=== PATIENT | female | born 1990 | race Caucasian/White ===

== ENCOUNTER 2023-03-04 09:35 | Emergency (ER) | payer OTHER, SELFPAY ==
[2023-03-04 09:42] VITALS: BP 138/85; PULSE 81; RESP 16; TEMP 36.4; O2SAT 100
--- NOTE | 2023-03-04 09:48 | ED.BACK ---
HPI - Back Pain/Injury General Chief Complaint: Back Pain/Injury Stated Complaint: back pain Time Seen by Provider: 03/04/23 09:48 Source: patient Mode of arrival: ambulatory Limitations: no limitations History of Present Illness HPI Narrative: 32 yo F presents with c/o mid back pain starting yesterday. States she was at work standing and talking with someone and got sharp pain to back that made back tight and took her breath away. Eventually when away. Started again last night and has been constantly. Taking deep breath increases pain. Woke up this AM and felt like she couldn't get out of bed due to pain. When bending over stretches painful area and makes it feel better. No CP or SOB. Has not taken any OTC meds to treat pain. Denies injury. Started new job recently at [employer]. Standing, stocking and lifting. Ambulatory with steady gait. All systems reviewed and negative except as noted above. Related Data Allergies Allergy/AdvReac Type Severity Reaction Status Date / Time No Known Allergies Allergy Verified 03/04/23 09:46 Review of Systems Review of Systems: CONSTITUTIONAL: Denies fever, chills, or sweats. EYES: Denies visual changes, redness, or discharge. ENT: Denies rhinorrhea, congestion, sore throat, or otalgia. CARDIOVASCULAR: Denies chest pain, palpitations, or edema. RESPIRATORY: Denies cough or dyspnea. GASTROINTESTINAL: Denies abdominal pain, nausea, vomiting, or diarrhea. GENITOURINARY: Denies dysuria or hematuria. SKIN: Denies rash or itching. MUSCULOSKELETAL: Reports mid back pain. Denies joint pain, or myalgia. NEUROLOGIC: Denies headache, numbness, or weakness. PSYCHIATRIC: Denies anxiety or depression. All other systems reviewed are negative, except as documented in HPI. PMFSH Comments At time of signature, agree with nursing past medical, surgical, social and family history. There is no relevant family history pertinent to the presenting complaint. Exam Narrative: GENERAL: This is a well-nourished, well-developed patient, in no apparent distress. HEAD: normocephalic, atraumatic. EYES: PERRL. Sclera clear/white. Vision is grossly intact. EARS: External ears normal NOSE: External nose normal NECK: Neck supple, non-tender without lymphadenopathy, masses or thyromegaly. CARDIOVASCULAR: Regular rate and rhythm without murmurs, gallops, or rubs. RESPIRATORY: Clear to auscultation. Breath sounds equal bilaterally. No wheezes, rales, or rhonchi. SKIN: warm, Dry, intact with no suspicious lesions or rash, good texture and turgor. NEURO: awake, alert, and oriented to person, place and time. There were no obvious focal neurologic abnormalities. EXTREMITIES: No joint tenderness, effusion, or edema noted. BACK: no midline tenderness. no deformity. generalized muscle tenderness. flexion improves pain. Course Course Level of Care: Express Care Visit Vital Signs Vital signs: Vital Signs Temperature 36.4 C L 03/04/23 09:42 Pulse Rate 81 03/04/23 09:42 Respiratory Rate 16 03/04/23 09:42 Blood Pressure 138/85 03/04/23 09:42 Pulse Oximetry 100 03/04/23 09:42 Oxygen Delivery Room Air 03/04/23 09:42 Temperature 36.4 C L 03/04/23 09:42 Pulse Rate 81 03/04/23 09:42 Respiratory Rate 16 03/04/23 09:42 Blood Pressure 138/85 03/04/23 09:42 Pulse Oximetry 100 03/04/23 09:42 Oxygen Delivery Room Air 03/04/23 09:42 reviewed MDM - Back Pain/Injury MDM Narrative Medical decision making narrative: will treat with NSAIDS, prednisone, muscle relaxant. alternate ice and heat and stretch. instructed to go to ER for any worsening of symptoms. no neuro deficits. Patient is aware of diagnosis, understands and agrees to treatment plan. Anticipatory guidance given. Patient agrees to follow-up as directed and is aware of reasons to seek care at the emergency department. Portions of this record may have been created with voice recognition software Differential Di
== END 2023-03-04 10:02 | disposition home or self-care (01) ==
PROVIDERS: Emergency Provider Nurse Practitioner Family; PCP Family Medicine
DX: S29.012A Strain of muscle and tendon of back wall of thorax, initial encounter (principal); X58.XXXA Exposure to other specified factors, initial encounter; Y99.0 Civilian activity done for income or pay
CPT/HCPCS: 99213; G0463

== ENCOUNTER 2023-11-11 13:51 | Emergency (ER) | payer OTHER, SELFPAY ==
[2023-11-11 13:56] VITALS: BP 132/89; PULSE 94; RESP 20; TEMP 36.9; O2SAT 99
--- NOTE | 2023-11-11 14:03 | ED.URI ---
HPI - URI/Sore Throat General Stated Complaint: Shortness of Breath/Lung Pain Time Seen by Provider: 11/11/23 14:03 Source: patient and RN notes reviewed Mode of arrival: ambulatory Limitations: no limitations History of Present Illness HPI Narrative: 33-year-old female presents with concern for left long pain and shortness of breath. She reports symptoms started 4 days ago. She denies cold symptoms. Reports occasional cough. She denies fever, body aches, chills, sweats. She reports history of blood clots in her lung or 9 years ago. MD elicited complaint: other (Shortness of breath) Related Data Allergies Allergy/AdvReac Type Severity Reaction Status Date / Time No Known Allergies Allergy Verified 03/04/23 09:46 Review of Systems Review of Systems: CONSTITUTIONAL: Denies malaise, chills, sweats, or fever. EYES: Denies visual changes, redness, or discharge. ENT: Denies rhinorrhea, congestion, sinus pain, otalgia and sore throat. CARDIOVASCULAR: Denies palpitations, or edema. RESPIRATORY: Reports left lung pain. Reports rotation cough. Reports occasional dyspnea. GASTROINTESTINAL: Denies abdominal pain, nausea, vomiting, diarrhea SKIN: Denies rash or itching. MUSCULOSKELETAL: Denies myalgia. NEUROLOGIC: Denies headache. All systems reviewed & are unremarkable except as noted in HPI and below PMFSH Comments At time of signature, agree with nursing past medical, surgical, social and family history. There is no relevant family history pertinent to the presenting complaint Exam Narrative: GENERAL: Well-appearing, well-nourished, and in no acute distress. HEAD: Normocephalic EYES: PERRLA, conjunctivae clear ENT: Nares clear. Mucous membranes moist. TM pearly keller with sharp light reflex bilaterally; no tragal tenderness. Oropharynx not erythematous without lesions. Tonsils not enlarged and without exudate, no drooling, no hoarseness, no trismus, uvula midline. NECK: Supple. No lymphadenopathy CHEST: Clear to auscultation, breath sounds equal. No wheezing, rhonchi, rales, or stridor. No respiratory distress, speaks in full sentences. HEART: Regular rate and rhythm. No murmur heard. SKIN: Warm, dry, no rash. NEURO: Alert and oriented x3. PSYCH: Normal mood and affect Course Course Emergency Course: Patient is aware of, understands and agrees to be transferred to the emergency room. Patient agrees to proceed directly to the emergency department. Portions of this record may have been created with voice recognition software Level of Care: Express Care Visit Vital Signs Vital signs: Vital Signs Temperature 98.4 F 11/11/23 13:56 Pulse Rate 94 11/11/23 13:56 Respiratory Rate 20 11/11/23 13:56 Blood Pressure 132/89 11/11/23 13:56 Pulse Oximetry 99 11/11/23 13:56 Oxygen Delivery Room Air 11/11/23 13:56 Temperature 98.4 F 11/11/23 13:56 Pulse Rate 94 11/11/23 13:56 Respiratory Rate 20 11/11/23 13:56 Blood Pressure 132/89 11/11/23 13:56 Pulse Oximetry 99 11/11/23 13:56 Oxygen Delivery Room Air 11/11/23 13:56 Reviewed. Transfer Transfered to: [facility]) Transportation: Other (Private vehicle) Transfer rationale: SOB, lung pain, hx of blood clots Accepting physician: Deuce MDM - URI/Sore Throat MDM Narrative Medical decision making narrative: Differential diagnosis considered: Pulmonary embolism, Macias virus, strep pharyngitis, allergic rhinitis, upper respiratory tract infection, sinusitis, rhinosinusitis, nasopharyngitis. viral pharyngitis, otitis media, otitis externa, pneumonia, bronchitis, viral cough syndrome, viral syndrome, and influenza. Exam findings show no acute concerns or changes; patient is non-toxic appearing and is in no distress. Patient is appropriate for outpatient treatment and follow-up. Lab Data Attestation: I reviewed the patient's lab results. Critical Care Time Critical Care Time Critical Care Time: No Discharge P
== END 2023-11-11 14:19 | disposition short-term general hospital (02) ==
PROVIDERS: Emergency Provider Nurse Practitioner
DX: R06.02 Shortness of breath (principal); Z86.711 Personal history of pulmonary embolism
CPT/HCPCS: 99212; G0463

== ENCOUNTER 2024-06-10 12:50 | Emergency (ER) | payer OTHER, SELFPAY ==
--- OUTSIDE RECORDS SUMMARY | 2024-06-10 12:53 | XMS_ITS | Clinical Summary ---
Author Organization [facility] Address [address] [place] [address] Care Team Providers Care Commutator Repairer Name Role Phone Unavailable Primary Care Provider Unavailabl e Source Comments [facility],non-owned Affiliates and Associated Physician Practices is amultiple site organization consisting of ambulatory clinics and hospital sitesin [place], [place]. This disclosure is being madepursuant to the Care Everywhere program and may not contain all information available regarding this patient. 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 Gender Identity Not on file Sexual Orientation Not on file Plan of Treatment Health Maintenance Due Date Last Done Comments PAP SMEAR 1991 HIV SCREENING 09/06/2006 HEPATITIS C SCREENING 09/02/2009 DTAP/TDAP/TD VACCINES (1 - Tdap) 09/06/2010 HEPATITIS B VACCINE (1 of 3 - 19+ 3-dose series) 09/06/2010 COVID-19 VACCINE ( - 2023-2 5 season) 2023 DEPRESSION SCREENING 02/22/2024 INFLUENZA VACCINE (Season Ended) 2024 ZOSTER VACCINE (1 of 2) 09/06/2041 HIB VACCINE Aged Out No longer eligi ble based on patient's age to complete this topic HPV VACCINE Aged Out No longer eligi ble based on patient's age to complete this topic MENINGOCOCCAL (Group B) VACC INE SHARED DECISION-MAKING Aged Out No longer eligibl e based on patient's age to complete this topic MENINGOCOCCAL GROUPS A/C/Y/W VACCINE Aged Out No longer eligible b ased on patient's age to complete this topic PNEUMOCOCCAL VACCINE Aged Out No long er eligible based on patient's age to complete this topic Insurance [facility]
--- OUTSIDE RECORDS SUMMARY | 2024-06-10 12:53 | XMS_ITS | Clinical Summary ---
Author Organization [facility] Address [address] [place] [address] Phone Care Team Providers Care Perishable Freight Inspector Name Role Phone Samuel Montoya MD Unavailable [phone] Lyle Barreto MD Unavailable [phone] Tabby Coelho APRN, TRUCK DRIVING INSTRUCTOR Unavailable [phone] Mahi Little MD Primary Care Provider [phone] Allergies Active Allergy Reactions Criticality Noted Date Comments Hydrocodone Other (see Comments) High 03/30/2018 States blacks out Medications Paragard Intrauterine Copper IUD by Intrauterine route. Active methylPREDNISolo ne (MEDROL DOSPACK) 4 MG Tablet Therapy Pack See product package insert for dosing schedule 21 Tablet 4 Active Active Problems Problem Noted Date Diagnosed Date Mass of left breast 01/26/2022 Right axillary swelling 08/14/2020 History of therapeutic radiation 11/27/2019 Overview (11/27/2019): Hypofractionated left breast radiotherapy completed 10/02/2018. Breast pain, left 12/26/2018 History of cancer chemotherapy 08/08/2018 Overview (08/08/2018): 4 cycles of carboplatin and Taxotere 05/16/2018 thru 07/18/2018. Obesity, Class I, BMI 30-34.9 05/01/2018 Overview (05/01/2018): BMI 34.38 on 04/26/2018. Continuous tobacco abuse 04/26/2018 Overview (04/26/2018): 6 pack year history. Was interested in trying to quit but has not yet tried. History of left breast cancer 03/06/2018 Cancer Staging:Clinical stage from 04/26/2018:Stage IIA(cT2, cN0(f), cM0, G2, ER+, IA-, HER2-) - Signed by Samuel Montoya MD on 11/15/2018 Pathologic stage from 04/26/2018:Stage IIA(pT2, pN0(sn), cM0, G3, ER-, IA-, HER2-, Oncotype DX score: 58) - Signed by Samuel Montoya MD on 11/15/2018 Overview (11/15/2018): Pathological stage IIA (pT2 pN0(sn) cM0, G3, triple negative, Ki-67 70%, & Oncotype DX score 58) left breast IDC. She had breast conserving surgery 03/30/2018. On her breast biopsy her tumor stained at 40% for estrogen receptor but by Oncotype DX was triple negative. She received 4 cycles of adjuvant postoperative carboplatin and Taxotere from 05/16/2018 thru 07/18/2018. She completed hypofractionated left breast radiotherapy 10/02/2018. History of deep vein thrombosis (DVT) of lower e xtremity 10/23/2015 Overview (04/26/2018): Right lower extremity. While on Coumadin for anticoagulation for a PE in February 2015. Uses control 03/22/2015 Overview (05/01/2018): Depot progesterone as control following development of PE February 2015 while on Nexplanon dermal implant as control. . History of pulmonary embolism 02/21/2015 Overview (04/26/2018): While on Nexplanon dermal implant as control. Managed with Coumadin. Resolved Problems Problem Noted Date Diagnosed Date Resolved Date Acute radiation dermatitis 09/25/2018 0 11/15/2018 Overview (09/25/2018): Mild, in the left lower outer quadrant of the left breast. Anemia due to chemotherapy 09/18/2018 0 11/15/2018 Constipation 06/30/2018 08/08/2018 Nausea 06/28/2018 08/08/2018 Anxiety 06/06/2018 11/15/2018 Continuous tobacco abuse 06/06/2018 History of lymph node biopsy 04/26/2018 11/15/2018 Overview (04/26/2018): Left axillary sentinel lymph node biopsy 03/30/2018 in conjunction with a left partial mastectomy. History of partial mastectomy of left breast 9 11/15/2018 Overview (04/26/2018): 03/30/2018 in conjunction with a left axillary sentinel lymph node biopsy. Right leg DVT 03/29/2016 04/26/2018 Pulmonary emboli 03/22/2015 04/26/2018 Chest pain in adult 03/22/2015 03/29/19 17 Tobacco use 03/22/2015 11/15/2018 Immunizations Immunization Administration Dates Next Due Covid-19, Mrna, Lnp-s, Pf, 3 0 Mcg/0.3 Ml Dose ([employer]) 07/29/2020,07/09/2020 DTP Vaccine 12/02/1995 DTP-Hib 06/04/1993, 3,04/25/1992,01/09 Hepatitis A Vaccine, Pediatric/adolescent, 2 Dose Schedule 09/08/2006 Hepatitis B Vaccine, Pediatric/adolescent 05/09/1996,12/02/1995,09/15/1994 Human Papillomavirus Vaccine (HPV), quadrivalent 04/20/2007,09/08/2006 MMR Vaccine 12/02/1995,06/04/1993 OPV 12/02/1995, 3,04/25/1992,01/09 TDAP Vaccine 09/08/2006 Family History Medical History Relation Name Comments No Known Problems Brother 1 No Known Problems Brother 2 No Known Problems Daughter No Known Problems Father Cancer Maternal Aunt Spine Heart Attack Mother Hypertension Mother Relation Name Status Comments Brother 1 Alive Brother 2 Alive Daughter Alive Father Alive Maternal Aunt Mother Alive Social History Tobacco Use Types Packs/Day Years Used Date Smoking Tobacco: Every Day Cigarettes 0.5 17.8 Started: 08/05/2006 Smokeless Tobacco: Never Tobacco Cessation:Ready to Q uit: Not Asked; Counseling Given: Not Answered Comments:Hoping to quit. 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 Not on file Not on file Not on file Last Filed Vital Signs Vital Sign Reading Time Taken Comments Blood Pressure 123/81 11/11/2023 10:00 PM CDT Pulse 86 11/11/2023 10:00 PM CDT Temperature 36.4 C (97.6 F) 11/11/2023 2:57 PM CDT Respiratory Rate 22 11/11/2023 10:00 PM CDT Oxygen Saturation 98% 11/11/2023 10:00 PM CDT Inhaled Oxygen Concentration - - Weight 95.3 kg (210 lb 1.6 oz) 11/11/2023 2:57 P M CDT Height 168.9 cm (5' 6.5 ) 11/11/2023 2:57 PM CDT Body Mass Index 33.4 11/11/2023 2:57 PM CDT Plan of Treatment Health Maintenance Due Date Last Done Comments Hepatitis C Virus (HCV) Screening 1990 Pneumococcal Immunization Combined (1 of 2 - PCV) 09/06/2010 Pap Smear 09/06/2012 DTaP/Tdap/Td Immunization (7 - Td or Tdap) 09/08/2016 09/08/2006, 12/02/1995, 06/04/1993, Additional history exists Cervical Cancer Screening (CCS) 09/06/2021 HPV/Cotest 09/06/2021 Influenza Immunization (#1) 2023 SARS-COV-2 Immunization ( season) 2023 03/21/2021, 07/29/2020, 07/09/2020 Respiratory Syncytial Virus (RSV) Immunization (Adult) (1 - 1-dose 75+ series) 09/06/2066 Hepatitis B Immunization Completed 997, 12/02/1995, 09/15/1994 Meningococcal Immunization (ACWY) Aged Out No longer eligible based on patient's age to complete this topic Rotavirus Immunization Aged Out No lo nger eligible based on patient's age to complete this topic Medical Devices Explanted Type Area Host/Hostess Ground Device Identifier Shelf Expiration Date Model / Serial / Lot Port Powerport Clearvue Isp Implantable W/8fr Folyurethane Catheter - [id number] Implanted:Qty: 1 on 05/11/2018 by Lino Wills MD at [facility] Explanted:Qty: 1 on 09/04/2018 by Marek Keith MD at [facility] IMPLANT Right: Chest [employer] 07/22/2019 [id number] / [id number] / [id number] Insurance [place]ID [place] Advance Directives * Full Code (Latest Code Status on File) Date Activated Date Inactivated Comments 03/21/2015 11:47 PM 03/23/2015 12:50 PM Full Code: FULL ARREST: Attempt Resuscitation/CPR and use intubation and mechanical ventilation as indicated. PRE-ARREST: Use all measures to stabilize patient. Care Teams Perishable Freight Inspector Relationship Specialty Start Date End Date Mahi Little MD [address] [place] [address] DR MURILLO [address] [place] [id number] PCP - General Obstetrics & Gynecology 9/20/24 Samuel Montoya MD Consulting Physician Radiation Oncology 04/26/18 Lyle Barreto MD [address] [place], [place] [id number] Consulting Physician Medical Oncology 11/27/19 Tabby Coelho APRN, TRUCK DRIVING INSTRUCTOR [address] [place] [address] Nurse Practitioner Advanced Practice Nurse 11/27/19
--- OUTSIDE RECORDS SUMMARY | 2024-06-10 12:53 | XMS_ITS | Referral Summary ---
Author Organization [facility] Virtual Care Address [address] [place] [phone] Phone Care Team Providers Care Fuel Cell Repairer Name Role Phone No, Physician Primary Care Provider [phone] No, Physician Unavailable Mahi Little MD Unavailable [phone] Allergies Active Allergy Reactions Criticality Noted Date Comments Hydrocodone Other (See comments) High 03/30/2018 States blacks out Medications ibuprofen (ADVIL,MOTRIN) 600 mg tablet Take 1 tablet (600 mg total) by mouth every 6 (six) hours as needed for pain 20 tablet 07/20/2023 Active Active Problems Problem Noted Date Diagnosed Date Stress incontinence of urine 08/04/2023 Assessment & Plan (08/04/2023 4:05 PM CDT): To ua micro and C&S History of left breast cancer 05/16/2023 Menorrhagia with regular cycle 05/16/2023 Assessment & Plan (08/04/2023 3:59 PM CDT): S/p novasure Supposed to start period tomorrow No more odor Assessment & Plan (07/13/2023 10:00 AM CDT): Procedure reviewed along with risk, benefits and alternatives as they pertain to her specifically. Questions answered Post op pain management discussed. She voices understanding and desired to proceed. usg reviewed We discussed the 50% amenorrhea rate with novasure, the 46-47% significantly decreased menses and 2-3% failure. We discussed that it may not be permanent. We discussed that the cervix can scar and hematocolpos can form or there can be a delay in diagnosing endometrial cancer Other risk can include but are not limited to infection, bleeding, uterine perforation and damage to other organs or complications from anesthesia. This is not contraception. She voices understanding and desires to proceed. Assessment & Plan (06/20/2023 11:05 AM CDT): To usg Options dicussed usg reviewed We discussed the 50% amenorrhea rate with novasure, the 46-47% significantly decreased menses and 2-3% failure. We discussed that it may not be permanent. We discussed that the cervix can scar and hematocolpos can form or there can be a delay in diagnosing endometrial cancer Other risk can include but are not limited to infection, bleeding, uterine perforation and damage to other organs or complications from anesthesia. This is not contraception. She voices understanding and desires to proceed. Assessment & Plan (05/16/2023 2:17 PM CDT): Patient presents today with complaints of menorrhagia, worsening over the past year. She does have a history of triple negative breast cancer and is a smoker. We discussed hormonal intervention not being in her best interest. She is interested in discussing endometrial ablation. We will go ahead and set up an appointment with Dr. Little to discuss surgical treatment. We discussed initiating ibuprofen 600 mg q.6 hours with the onset of her menses to help with her flow. Patient is agreeable to the plan. Sterilization 08/06/2022 Assessment & Plan (09/14/2022 3:03 PM CDT): Doing well Path reviewed She is having some hot flashes. Encounter for evaluation regarding contraception options 08/05/2022 Assessment & Plan (09/02/2022 4:24 PM CDT): Procedure reviewed along with risk, benefits and alternatives as they pertain to her specifically. Questions answered Post op pain management discussed. She voices understanding and desired to proceed. Assessment & Plan (08/05/2022 4:58 PM CDT): Wants btl. Tubal papers signed last Tuesday. Understands that it is permanent and that I will be taking as much of the tube as possible as the current theory is that this may decrease the risk for ovarian cancer. Will get on the books Mass of left breast 01/26/2022 Right axillary swelling 08/14/2020 Breast pain, left 12/26/2018 Obesity, Class I, BMI 30-34.9 05/01/2018 Overview (05/16/2023): BMI 34.38 on 04/26/2018. Resolved Problems Problem Noted Date Diagnosed Date Resolved Date Ectopic without in trauterine 07/29/2022 06/20/2023 Assessment & Plan (09/06/2022 7:24 AM CDT): Will check that the adnexal mass seen at her last her last usg has resolved. Beta is negative. Assessment & Plan (08/05/2022 4:56 PM CDT): Beta are declining usg reviewed She is still wanting bTl. Will remove mass at the same time No sex until then Her mother keeps reminding her To beta next week Precautions given. Social History Tobacco Use Types Packs/Day Years Used Date Smoking Tobacco: Former Cigarettes Passive Smoke Exposure: Current Smokeless Tobacco: Never Tobacco Cessation:Ready to Q uit: Not Asked; Counseling Given: Not Answered Humiliation, Afraid, Rape, and Kick questionnair e Answer Date Recorded Within the last year, have y ou been afraid of your partner or ex-partner? No 05/16/2023 Within the last year, have y ou been humiliated or emotionally abused in other ways by your partner or ex-partner? No Within the last year, have y ou been kicked, hit, slapped, or otherwise physically hurt by your partner or ex-partner? No 05/16/2023 Within the last year, have y ou been raped or forced to have any kind of sexual activity by your partner or ex-partner? No 05/16/2023 AUDIT-C Answer Date Recorded Q1: How often do you have a drink containing alcohol? Never 07/20/2023 Q2: How many drinks containi ng alcohol do you have on a typical day when you are drinking? Patient does not drink Frequency of Binge Drinking Not on file 06/22 PHQ-2 Answer Date Recorded PHQ-2 Total Score (If total score is 3 or more points, staff should administer the PHQ-9) 0 06/20/2023 Personal Safety Answer Date Recorded Have you ever been in or are you currently in a harmful physical or emotional relationship or is someone making you feel afraid or unsafe? 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 Gender Identity Not on file Sexual Orientation Not on file Last Filed Vital Signs Vital Sign Reading Time Taken Comments Blood Pressure 110/70 08/04/2023 3:51 PM CDT Pulse 64 07/20/2023 11:47 AM CDT Temperature 36.2 C (97.1 F) 07/20/2023 11:47 AM CDT Respiratory Rate 18 07/20/2023 11:4 7 AM CDT Oxygen Saturation 97% 07/20/2023 11: 47 AM CDT Inhaled Oxygen Concentration - - Weight 107.6 kg (237 lb 3.2 oz) 08/04/2023 3:51 PM CDT Height 167.6 cm (5' 6 ) 07/20/2023 7:31 AM CDT Body Mass Index 38.29 07/20/2023 7:31 AM CDT Plan of Treatment Not on file Procedures Procedure Name Priority Date/Time Associated Diagnosis Comments PAP AND HPV, REFLEX TO HPV GENOTYPES Routine 05/16/2023 1:16 PM CDT Well woman exam with routine gynecological exam from Last 3 Months or Most Recently Relevant to Health Maintenance Results * Pap and HPV, reflex to HPV Genotypes (05/16/2023 1:16 PM CDT) CLINICAL INFORMATION: [facility] Comment:None given LMP [facility] Comment:None given Previous Pap [facility] Comment:None given Prev. Bx [facility] Comment:None given SOURCE: [facility] Comment:Cervix, Endocervix Pap, specimen adequacy [facility] Comment: Satisfactory for evaluation. Endocervical/transformation zone component present. Age and/or menstrual status not provided HPV interp [facility] Comment: Cytology Results: Negative for intraepithelial lesion or malignancy. COMMENTS [facility] Comment: This case could not be evaluated with computer assisted technology. The slide was manually screened according to routine procedures. Manager [facility] Comment: BES, CT(ASCP) CT screening location: [place] [address] Administration JAMIL Rehman [id number] Comment [facility] Comment: EXPLANATORY NOTE: The Pap is a screening test for cervical cancer. It is not a diagnostic test and is subject to false negative and false positive results. It is most reliable when a satisfactory sample, regularly obtained, is submitted with relevant clinical findings and history, and when the Pap result is evaluated along with historic and current clinical information. Human papillomavirus DNA, High Risk E6/E7 Not Detected NOT DETECTED [facility] Comment: Not Detected High Risk HPV types (16,18,31,33,35,39,45,51,52, 56,58,59,66,68) were not detected. Other HPV types which cause anogenital lesions may be present. The significance of the other types of HPV in malignant processes has not been established. Methodology: Real Time PCR Thin prep 05/16/2023 1:16 PM CDT 05/17/2023 4:21 AM CDT us Brigida Canales NP LAB CYTOLOGY ORDERABLES Final Re sult [facility] [id number] [address] JAMIL Rios [id number] Sarah [place] [address] [address] [place] [phone] from Last 3 Months or Most Recently Relevant to Health Maintenance Insurance [facility] [id number] [place] [id number] [place] [address] Care Teams Fuel Cell Repairer Relationship Specialty Start Date End Date No, Physician PCP - General 07/15/22 No, Physician 07/15/22 Mahi Little MD [address] [place] [address] DR MURILLO [address] [place] [id number] Consulting Physician Obstetrics and Gynecology 09/09/22
--- OUTSIDE RECORDS SUMMARY | 2024-06-10 12:53 | XMS_ITS | Encounter Summary ---
Author Organization [facility] Address [address] [place] [address] Phone Care Team Providers Care Welding Teacher Name Role Phone Bucky Hanna MD Unavailable Samuel Montoya MD Unavailable Cristian Santacruz MD Primary Care Provider [phone] Lyle Barreto MD Unavailable Tabby Coelho APRN, CAMPUS SECURITY DIRECTOR Unavailable Mahi Little MD Primary Care Provider [phone] Encounter Details Date Type Department Care Team (Late st Contact Info) Description 10/03/2019 [facility]phone [facility] [address] [place] [address] Tabby Coelho APRN, CAMPUS SECURITY DIRECTOR [address] [place] [address] Social History Tobacco Use Types Packs/Day Years Used Date Smoking Tobacco: Every Day Cigarettes 0.5 17.8 Started: 08/05/2006 Smokeless Tobacco: Never Comments:Hoping to quit. Alcohol Use Standard Drinks/Week [...] file Not on file Not on file COVID-19 Exposure Response Date Recorded In the last month, have you been in contact with someone who was confirmed or suspected to have Coronavirus / COVID-19? No / Unsure 10/01/2019 10:43 AM CDT documented as of this encounter Miscellaneous Notes * Telephone Encounter - Laura Boudreaux - 10/03/2019 2:27 PM CDT I returned the patients call regarding resent lab results. Per the nurse practitioner Tabby Coelho, I informed the patient that labs looked good at this time, with no concerns. I instructed the patient to repeat her labs and mammogram in 6 months prior to her follow up. The patient was pleased andhand no further questions. documented in this encounter Plan of Treatment Not on file documented as of this encounter Visit Diagnoses Not on filedocumented in this encounter Additional Health Concerns Assessment Noted Time PHQ-9 Depression Total Score: 0 06/18/19 20 10:00 AM CDT documented as of this encounter Care Teams Welding Teacher Relationship Specialty Start Date End Date Cristian Santacruz MD PCP - General Family Medicine 08/08/18 05/16/23 Mahi Little MD [address] [place] [address] DR MURILLO [address] [place] [id number] PCP - General Obstetrics & Gynecology 11/11/23 Bucky Hanna MD Consulting Physician Medical Oncology 04/26/18 11/26/19 Samuel Montoya MD Consulting Physician Radiation Oncology 04/26/18 Lyle Barreto MD [address] [place] [address] Consulting Physician Medical Oncology 11/27/19 Tabby Coelho APRN, CAMPUS SECURITY DIRECTOR [address] [place] [address] Nurse Practitioner Advanced Practice Nurse 11/27/19 documented as of this encounter
--- OUTSIDE RECORDS SUMMARY | 2024-06-10 12:53 | XMS_ITS | Clinical Summary ---
Author Organization [facility] Virtual Care Address [address] [place] [phone] Phone Care Team Providers Care Cigar Wrapper Tender Automatic Name Role Phone No, Physician Primary Care Provider [phone] No, Physician Unavailable Mahi Litlte MD Unavailable [phone] Allergies Active Allergy Reactions Criticality Noted Date [...] her To beta next week Precautions given. Surgical History Surgery Date Site/Laterality Comments BREAST SURGERY Left lumpectomy TUBAL LIGATION Medical History Medical History Date Comments Cancer (HCC) left breast canc er. She states she had genetic testing and was negative. There is a note from Dr. Billings that states BRCA negative. 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 Gender Identity Not on file Sexual Orientation Not on file Obstetrics History Para Term AB IAB SAB Ectopic Multiple Livin g Live Births 4 1 1 2 2 1 1 Date Outcome GA Total Labor Labor/2nd/3rd Weight Sex Type Anes PTL Christina A1 A5 Name Clin 2013 Term F Vag-S pont N Living 3 SAB SAB 3 SAB SAB Last Filed Vital Signs Vital Sign Reading [...] 07/20/2023 7:31 AM CDT Plan of Treatment Health Maintenance Due Date Last Done Comments Hepatitis C Screening 1991 Varicella Vaccines (1 of 2 - 13+ 2-dose series) 09/06/2004 HPV Vaccines (3 - 3-dose series) 07/13/2007 04/20/2007, 09/08/2006 DTaP/Tdap/Td Vaccine (7 - Td or Tdap) 09/08/2016 09/08/2006, 12/02/1995, 06/04/1993, Additional history exists Covid-19 Vaccine ( season) 2023 03/21/2021, 07/29/2020, 07/09/2020 Cervical Cancer Screening 05/15/2024 05/16/2023 Regular Well Visit/Exam 18-64 05/15/2024 05/16/2023 Depression Screening 06/19/2024 06/20/2023 Influenza Vaccine (Season Ended) 2024 Hepatitis B Screening Completed 05/09/1996 , 12/02/1995, 09/15/1994 Pneumococcal vaccine <65 Aged Out No longer eligible based on patient's age to complete this topic Procedures Procedure Name Priority Date/Time Associated Diagnosis Comments PAP AND HPV, REFLEX TO HPV GENOTYPES Routine 05/16/2023 1:16 PM CDT Well woman exam with routine gynecological exam from Last 3 Months or Most Recently Relevant to Health Maintenance Results * Pap and HPV, reflex to HPV Genotypes (05/16/2023 1:16 PM CDT) CLINICAL INFORMATION: [facility] Comment:None given LMP [facility] Comment:None given Previous Pap [facility] Comment:None given Prev. Bx [facility] Comment:None given SOURCE: [facility] Comment:Cervix, Endocervix Pap, specimen adequacy [facility] Comment: Satisfactory for evaluation. Endocervical/transformation zone component present. Age and/or menstrual status not provided HPV interp [facility] Comment: Cytology Results: Negative for intraepithelial lesion or malignancy. COMMENTS [facility] Comment: This case could not be evaluated with computer assisted technology. The slide was manually screened according to routine procedures. Endless Steamer Tender Luigi [facility] Comment: BES, CT(ASCP) CT screening location: [place] [address] [address] JAMIL Rehman [id number] Comment [facility] Comment: EXPLANATORY NOTE: The Pap is a [...] High Risk E6/E7 Not Detected NOT DETECTED [facility] /Duane [facility] Comment: Not Detected High Risk HPV types (16,18,31,33,35,39,45,51,52, 56,58,59,66,68) were not detected. Other HPV types which cause anogenital lesions may be present. The significance of the other types of HPV in malignant processes has not been established. Methodology: Real Time PCR Thin prep 05/16/2023 1:16 PM CDT 05/17/2023 4:21 AM CDT Brigida Canales NP LAB CYTOLOGY ORDERABLES Final Re sult [place] [address] [address] JAMIL Rios [id number] [facility]/[place] [address] [place] [phone] from Last 3 Months or Most Recently Relevant to Health Maintenance Insurance [facility] Care Teams Cigar Wrapper Tender Automatic Relationship Specialty Start Date End Date No, Physician PCP - General 07/15/22 No, Physician 07/15/22 Mahi Little MD [address] [place] [address] [place] [address] Consulting Physician Obstetrics and Gynecology 09/09/22
[2024-06-10 12:54] VITALS: BP 140/84; PULSE 91; RESP 20; TEMP 36.4; O2SAT 100
--- NOTE | 2024-06-10 13:15 | ED_ITS ---
HPI - Ear Problem General Chief complaint: Ear Stated complaint: both ears clogged Time Seen by Provider: 06/10/24 12:59 Source: patient and RN notes reviewed Mode of arrival: ambulatory Limitations: no limitations History of Present Illness HPI Narrative: Patient presents today complaining of 5 day history of right ear clogging with left ear slightly clock since yesterday. The she has had a 2.5 week history of slight cough, nasal congestion, rhinorrhea. Denies ear pain or drainage. She has tried Sudafed PE without relief. Related Data Allergies Allergy/AdvReac Type Severity Reaction Status Date / Time No Known Allergies Allergy Verified 06/10/24 12:58 Review of Systems Review of Systems: CONSTITUTIONAL: Denies body aches, fever, chills, or sweats. EYES: Denies visual changes, redness, or discharge. ENT: + rhinorrhea, congestion, bilateral ear clogging CARDIOVASCULAR: Denies chest pain, palpitations, or edema. RESPIRATORY: Denies dyspnea.+ cough GASTROINTESTINAL: Denies abdominal pain, nausea, vomiting, or diarrhea. GENITOURINARY: Denies dysuria or hematuria. SKIN: Denies rash, itching, or wounds. MUSCULOSKELETAL: Denies back pain, joint pain, or myalgia. NEUROLOGIC: Denies headache, numbness, tingling, or weakness. PSYCH: Denies depression or anxiety. PMFSH Comments At time of signature, I have reviewed and agree with nursing past medical, surgical, social and family history unless otherwise noted. Please see nursing chart for further information. There is no relevant family history pertinent to the presenting complaint Exam Narrative: GENERAL: Well-appearing, well-nourished, and in no acute distress. HEAD: Normocephalic, atraumatic. EYES: EOMI. No redness or drainage. Conjunctivae normal. ENT: Mucous membranes pink and moist. Nares mildly congested. No rhinorrhea. Right TM mildly erythematous some bulging. Left TM with mild serous effusion. Throat normal. Uvula midline. NECK: Normal AROM. CHEST: No respiratory distress. EXTREMITIES: Normal range of motion. No edema. SKIN: Warm, dry, no rash. Capillary refill normal. Normal skin turgor. NEURO: No focal deficits. Alert and oriented x3. Gait steady. PSYCH: Normal affect. No signs of depression or anxiety. Course Course Level of Care: Express Care Visit Vital Signs Vital signs: Vital Signs Temperature 97.6 F 06/10/24 12:54 Pulse Rate 91 06/10/24 12:54 Respiratory Rate 20 06/10/24 12:54 Blood Pressure 140/84 06/10/24 12:54 Pulse Oximetry 100 06/10/24 12:54 Oxygen Delivery Room Air 06/10/24 12:54 Temperature 97.6 F 06/10/24 12:54 Pulse Rate 91 06/10/24 12:54 Respiratory Rate 20 06/10/24 12:54 Blood Pressure 140/84 06/10/24 12:54 Pulse Oximetry 100 06/10/24 12:54 Oxygen Delivery Room Air 06/10/24 12:54 Reviewed Medical Decision Making MDM Narrative Medical decision making narrative: Patient will be treated with Augmentin for developing right otitis media as well as sinusitis. Medrol Dosepak also given to help facilitate drainage of serous effusion. Anticipatory guidance given. Differential Diagnosis Differential Diagnosis: Otitis media, otitis externa, ruptured TM, serous otitis, URI Vital Signs Vital Signs: Vital Signs Temperature 97.6 F 06/10/24 12:54 Pulse Rate 91 06/10/24 12:54 Respiratory Rate 20 06/10/24 12:54 Blood Pressure 140/84 06/10/24 12:54 Pulse Oximetry 100 06/10/24 12:54 Oxygen Delivery Room Air 06/10/24 12:54 Temperature 97.6 F 06/10/24 12:54 Pulse Rate 91 06/10/24 12:54 Respiratory Rate 20 06/10/24 12:54 Blood Pressure 140/84 06/10/24 12:54 Pulse Oximetry 100 06/10/24 12:54 Oxygen Delivery Room Air 06/10/24 12:54 Critical Care Time Critical Care Time Critical Care Time: No Discharge Plan Discharge Clinical Impression: Acute right otitis media Left acute serous otitis media Qualifiers: Recurrence: non-recurrent Qualified Code(s): H65.02 - Acute serous otitis media, left ear Sinusitis Qualifiers: Sinusitis location: unspecified location Chronicity: acute Recurrence: non- recurrent Qualified Code(s): J01.90 - Acute sinusitis, unspecified Patient Disposition: Home Condition: Stable Instructions: Antibiotic Form, Sinusitis (ED), Ear Infection (AC) Additional Instructions: Please take the Augmentin and Medrol as directed. You may consider taking some Sudafed or using Flonase to help equalize your ears as well. Follow-up with your PCP in 3-4 days if symptoms are not improving. Your blood pressure was elevated above 120/80 today at Urgent Care. This puts you above the threshold for follow up. Please schedule a followup visit with your personal physician as soon as possible, for further evaluation and treatment. Even blood pressure exceeding 120/80 may indicate pre-hypertension. Patient Language: [place] Leonean Prescriptions: New methylprednisolone [Medrol (Naga)] 4 mg tablets,dose pack See Rx Instructions .ROUTE .COMPLEX Qty: 21 0RF Rx Instructions: orally per package directions amoxicillin-pot clavulanate 875-125 mg tablet 1 tablet PO Q12H 7 Days Qty: 14 0RF Follow-up/Referrals: PHYSICIAN,DIRECTIONAL BORE OPERATOR [Primary Care Provider] - Time of Disposition: 13:07
== END 2024-06-10 13:09 | disposition home or self-care (01) ==
PROVIDERS: Emergency Provider Nurse Practitioner
DX: H66.91 Otitis media, unspecified, right ear (principal); H65.02 Acute serous otitis media, left ear; J01.90 Acute sinusitis, unspecified
CPT/HCPCS: 99213; G0463

== ENCOUNTER 2024-10-02 13:02 | Emergency (ER) | payer OTHER, SELFPAY ==
[2024-10-02 13:06] VITALS: BP 155/87; PULSE 94; RESP 16; TEMP 36.3; O2SAT 100
--- NOTE | 2024-10-02 13:08 | ED.SKABFB ---
HPI - Skin/Abscess/Foreign Bdy General Chief complaint: Skin/Abscess/Foreign Body Stated complaint: rash /left arm and stomach Time Seen by Provider: 10/02/24 13:08 Source: patient Mode of arrival: ambulatory Limitations: no limitations History of Present Illness HPI narrative: 34 y/o female presented for c/o spreading rash. Onset 1.5 weeks. Says red bumps started on the abdomen, now is on the left arm, and upper inner thighs. Pt is using eczema cream and benadryl without much improvement. Denies pain or drainage. Denies contact with outdoor allergens. Denies lip, tongue, or throat swelling, shortness of breath or wheezing. Denies changes to soap, detergent, lotion, or any other exposures. No one else in the house or any contacts with similar symptoms. Related Data Allergies Allergy/AdvReac Type Severity Reaction Status Date / Time No Known Allergies Allergy Verified 10/02/24 13:09 Review of Systems Review of Systems: CONSTITUTIONAL: Denies body aches, fever, chills, or sweats. EYES: Denies visual changes, redness, or discharge. ENT: Denies rhinorrhea, congestion CARDIOVASCULAR: Denies chest pain, palpitations, or edema. RESPIRATORY: Denies cough or dyspnea. GASTROINTESTINAL: Denies abdominal pain, nausea, vomiting, or diarrhea. SKIN: reports rash MUSCULOSKELETAL: Denies back pain, joint pain, or myalgia. NEUROLOGIC: Denies headache, numbness, tingling, or weakness. PMFSH Comments At time of signature, I have reviewed and agree with nursing past medical, surgical, social and family history unless otherwise noted. Please see nursing chart for further information. There is no relevant family history pertinent to the presenting complaint Exam Narrative: GENERAL: Well-appearing HEAD: Normocephalic, atraumatic. EYES: conjunctivae clear, and EOMI. ENT: Mucous membranes moist. Oropharynx without edema, erythema or lesions. NECK: Supple. No lymphadenopathy CHEST: Clear to auscultation. HEART: Regular rate and rhythm. SKIN: Warm, dry. Scattered patches of erythematous vesicles noted to left forearm, abdomen, and bilateral medial upper thigh. Nontender, no drainage or induration. NEURO: Alert and oriented x3. Course Course Emergency Course: Patient is aware of diagnosis, understands and agrees to treatment plan. Anticipatory guidance given. Patient agrees to follow-up as directed and is aware of reasons to seek care at the emergency department. Portions of this record may have been created with voice recognition software Level of Care: Express Care Visit Vital Signs Vital signs: Reviewed MDM - Skin/Abscess/Foreign Bdy MDM Narrative Medical decision making narrative: Discussed physical exam findings c/w contact dermatitis, reviewed RX. Advised supportive measures and signs/symptoms to go to the ER. Pt is appropriate for outpt treatment and f/u. Differential Diagnosis Differential diagnosis: Likely abscess of skin or subcutaneous tissue, viral exanthem, dermatophytosis, urticaria, herpes zoster, cellulitis, eczema, insect bites, impetigo and contact dermatitis Discharge Plan Discharge Clinical Impression: Contact dermatitis Patient Disposition: Home Condition: Stable Instructions: Antibiotic Form, Dermatitis (ED) Additional Instructions: Take steroids and Pepcid as directed. Benadryl every 8 hours as needed You can apply [id number] anti-itch cream such as Benadryl, calamine, or Deanna dry Cool compresses to the sites of itching, avoid hot water. Avoid scratching to reduce the risk of infection Follow up with your primary care provider as needed in 1 week Go to the ER for worsening symptoms or concerns (lip, tongue, throat swelling/itching, trouble breathing etc) Patient Language: Ukrainian Prescriptions: New famotidine [Pepcid] 40 mg tablet 40 mg PO DAILY Qty: 10 0RF prednisone 20 mg tablet 20 mg PO DAILY Qty: 13 0RF Rx Instructions: take 3 tablets daily for 2 days, then 2 tablets daily for 2 days then 1 tablet daily for 3 days Follow-up/Referrals: PHYSICIAN,ZIPPER SETTER CHAINSTITCH [Primary Care Provider] - Time of Disposition: 13:16
--- OUTSIDE RECORDS SUMMARY | 2024-10-02 13:18 | XMS_ITS | Clinical Summary ---
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 Techniques for smoking cessation were discussed to the patient's level of interest. Assessment & Plan (09/24/2024 3:01 PM CDT): The patient was encouraged to stop smoking. Techniques for smoking cessation were discussed to the patient's level of interest. Stress incontinence of urine 08/04/2023 Assessment & Plan (08/30/2024 1:55 PM CDT): stable Assessment & Plan (08/04/2023 4:05 PM CDT): To ua micro and C&S History of left breast cancer 05/16/2023 Menorrhagia with regular cycle 05/16/2023 Assessment & Plan (08/30/2024 1:55 PM CDT): Still no bleeding Has sx, but no flow Assessment & Plan (08/04/2023 3:59 PM CDT): [...] flow. Patient is agreeable to the plan. Well woman exam 08/06/2022 Assessment & Plan (09/24/2024 3:02 PM CDT): due Assessment & Plan (09/14/2022 3:03 PM CDT): Doing well Path reviewed She is having some hot flashes. Right axillary swelling 08/14/2020 Resolved Problems Problem Noted Date Diagnosed Date Resolved Date Encounter for evaluation reg arding contraception options 08/05/2022 08/30/2024 Assessment & Plan (09/02/2022 4:24 PM CDT): [...] ovarian cancer. Will get on the books Ectopic without in trauterine 07/29/2022 06/20/2023 Assessment [...] her To beta next week Precautions given. Mass of left breast 01/26/2022 08/31/19 25 Breast pain, left 12/26/2018 08/30/2024 Obesity, Class I, BMI 30-34.9 05/01/2018 08/30/2024 Overview (05/16/2023): BMI 34.38 on 04/26/2018. Encounters Date Type Department Care Team Description 08/30/2024 1:00 PM CDT Office Visit [facility] [address] [place] [address] Mahi Little MD Anorgasmia of female (Primary Dx); Menorrhagia with regular cycle; Well woman exam; Stress incontinence of urine; Tobacco use 08/08/2024 Telephone [facility] [address] [facility] [address] [place] [address] Mahi Little MD from Last 3 Months Surgical History Surgery Date Site/Laterality Comments BREAST SURGERY Left lumpectomy TUBAL LIGATION ENDOMETRIAL ABLATION W/ NOVASURE 02/21/2023 - 02/21/2024 Medical History Medical History Date Comments Cancer (HCC) left breast canc er. She states she had genetic testing and was negative. There is a note from Dr. Billings that states BRCA negative. PE (pulmonary thromboembolism) DVT (deep venous thrombosis) rig ht leg Family History Medical History Relation Name Comments Heart disease Mother Cancer Neg Hx no change cmt Relation Name Status Comments Mother Social History Tobacco Use Types Packs/Day Years Used Date Smoking Tobacco: Former Cigarettes Passive Smoke Exposure: Current Smokeless Tobacco: Never Tobacco Cessation:Ready to Q uit: Not Asked; Counseling Given: Not Answered Humiliation, Afraid, Rape, and Kick questionnair e Answer Date Recorded Within the last year, have y ou been afraid of your partner or ex-partner? No 08/30/2024 Within the last year, have y ou been humiliated or emotionally abused in other ways by your partner or ex-partner? No Within the last year, have y ou been kicked, hit, slapped, or otherwise physically hurt by your partner or ex-partner? No 08/30/2024 Within the last year, have y ou been raped or forced to have any kind of sexual activity by your partner or ex-partner? No 08/30/2024 AUDIT-C Answer Date Recorded Q1: How often do you have a drink containing alc ohol? 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 Gender Identity Not on file Sexual Orientation [...] Sign Reading Time Taken Comments Blood Pressure 124/80 08/30/2024 1:23 PM CDT Pulse 64 07/20/2023 11:47 AM CDT Temperature 36.2 C (97.1 F) 07/20/2023 11:47 AM CDT Respiratory Rate 18 07/20/2023 11:47 AM CDT Oxygen Saturation 97% 07/20/2023 11:47 AM CDT Inhaled Oxygen Concentration - - Weight 112.5 kg (248 lb) 08/30/2024 1:23 PM CDT Height 167.6 cm (5' 6) 08/30/2024 1:23 PM CDT Body Mass Index 40.03 08/30/2024 1:23 PM CDT Plan of Treatment Health Maintenance [...] 05/16/2023 Depression Screening 06/19/2024 06/20/2023 Influenza Vaccine (#1) 2024 Hepatitis B Screening Completed 05/09/1996 , [...] Genotypes (05/16/2023 1:16 PM CDT) CLINICAL INFORMATION: [facility] Comment:None given LMP [facility] Comment:None given Previous Pap [facility] Comment:None given Prev. Bx [facility] Comment:None given SOURCE: [facility] Comment:Cervix, Endocervix Pap, specimen adequacy [facility] Comment: Satisfactory for evaluation. Endocervical/transformation zone component present. Age and/or menstrual status not provided HPV interp [facility] Comment: Cytology Results: Negative for intraepithelial lesion or malignancy. COMMENTS [facility] Comment: This case could not be evaluated with computer assisted technology. The slide was manually screened according to routine procedures. Oxygen Therapy Teacher [facility] Comment: BES, CT(ASCP) CT screening location: [place] [address] [place] [address] Comment [facility] Comment: EXPLANATORY NOTE: The Pap is a [...] High Risk E6/E7 Not Detected NOT DETECTED [facility] Comment: Not Detected High Risk HPV types (16,18,31,33,35,39,45,51,52, 56,58,59,66,68) were not detected. Other HPV types which cause anogenital lesions may be present. The significance of the other types of HPV in malignant processes has not been established. Methodology: Real Time PCR Thin prep 05/16/2023 1:16 PM CDT 05/17/2023 4:21 AM CDT us Brigida Canales NP LAB CYTOLOGY ORDERABLES Final Re sult [facility] [address] [place] [address] [facility] [address] [place] [address] from Last 3 Months or Most Recently Relevant to Health Maintenance Insurance [facility] [address] [phone] [facility] Care Teams Black Oxide Coating Equipment Tender Relationship Specialty Start Date End Date No, Physician PCP - General 07/15/22 No, Physician 07/15/22 Mahi Little MD [address] [place] [address] DR MURILLO [address] [place] [address] Consulting Physician Obstetrics and Gynecology 09/09/22
--- OUTSIDE RECORDS SUMMARY | 2024-10-02 13:18 | XMS_ITS | Clinical Summary ---
Author Organization [facility] Address [address] [place] [address] Phone Care Team Providers Care Visually Impaired Teacher Name Role Phone Samuel Montoya MD Unavailable [phone] Lyle Barreto MD Unavailable [phone] Tabby Coelho APRN, OBSTETRICS AND GYNECOLOGY PROFESSOR Unavailable [phone] Mahi Little MD Primary Care Provider Marguerite vailable Allergies Active Allergy Reactions Criticality Noted Date [...] from 04/26/2018:Stage IIA(cT2, cN0(f), cM0, G2, ER+, AL-, HER2-) - Signed by Samuel Montoya MD on 11/15/2018 Pathologic stage from 04/26/2018:Stage IIA(pT2, pN0(sn), cM0, G3, ER-, AL-, HER2-, Oncotype DX score: 58) - Signed [...] Lnp-s, Pf, 3 0 Mcg/0.3 Ml Dose ([employer]) 07/29/2020,07/09/2020 DTP Vaccine 12/02/1995 DTP-Hib 06/04/1993, 3,04/25/1992,01/09 [...] Date Smoking Tobacco: Every Day Cigarettes 0.5 18.2 Started: 08/05/2006 Smokeless Tobacco: Never Tobacco Cessation:Ready [...] P M CDT Height 168.9 cm (5' 6.5) 11/11/2023 2:57 PM CDT Body Mass Index 33.4 11/11/2023 2:57 PM CDT Plan of Treatment Health Maintenance Due Date Last Done Comments Hepatitis C Virus (HCV) Screening 1991 Human Papillomavirus (HPV) Immunization (3 - 3-dose series) 07/13/2007 04/20/2007, 09/08/2006 Pneumococcal Immunization Combined (1 of 2 - PCV) 09/06/2010 Pap Smear 09/06/2012 DTaP/Tdap/Td Immunization (7 - Td or Tdap) 09/08/2016 09/08/2006, 12/02/1995, 06/04/1993, Additional history exists Cervical Cancer Screening (CCS) 09/06/2021 HPV/Cotest 09/06/2021 SARS-COV-2 Immunization () 10/23/2023 03/21/2021, 07/29/2020, 07/09/2020 Influenza Immunization (#1) 2024 Respiratory Syncytial Virus (RSV) Immunization (Adult) (1 - 1-dose 75+ series) 09/06/2066 Hepatitis B Immunization Completed 997, 12/02/1995, 09/15/1994 Meningococcal Immunization (ACWY) Aged Out No longer eligible based on patient's age to complete this topic Rotavirus Immunization Aged Out No lo nger eligible based on patient's age to complete this topic Medical Devices Explanted Type Area Scaffolder Device Identifier Shelf Expiration Date Model / Serial / Lot Port Powerport Clearvue Isp Implantable W/8fr Folyurethane Catheter - [id number] Implanted:Qty: 1 on 05/11/2018 by Lino Wills MD at [facility] Explanted:Qty: 1 on 09/04/2018 by Marek Keith MD at [facility] IMPLANT Right: Chest [employer] 07/22/2019 [id number] / [id number] / [id number] Insurance MEDICAID [place] Advance Directives * Full Code (Latest Code Status on File) Date Activated Date Inactivated Comments 03/21/2015 11:47 PM 03/23/2015 12:50 PM Full Code: FULL ARREST: Attempt Resuscitation/CPR and use intubation and mechanical ventilation as indicated. PRE-ARREST: Use all measures to stabilize patient. Care Teams Visually Impaired Teacher Relationship Specialty Start Date End Date Mahi Little MD [address] [place] [address] PCP - General Obstetrics & Gynecology 11/11/23 Samuel Montoya MD Consulting Physician Radiation Oncology 04/26/18 Lyle Barreto MD [address] [place] [address] Consulting Physician Medical Oncology 11/27/19 Tabby Coelho APRN, OBSTETRICS AND GYNECOLOGY PROFESSOR [address] [place] [address] Nurse Practitioner Advanced Practice Nurse 11/27/19
--- OUTSIDE RECORDS SUMMARY | 2024-10-02 13:18 | XMS_ITS | Clinical Summary ---
Author Organization [facility] Address [address] [place] [address] Care Team Providers Care Assembling Machine Operator Name Role Phone Unavailable Primary Care Provider Unavailabl e Source Comments [facility],non-owned Affiliates and Associated Physician Practices is amultiple site organization consisting of ambulatory clinics and hospital sitesin [place], [place], [place] and [place]. This disclosure is being madepursuant to the Care Everywhere program and may not contain all information available regarding this patient. 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
--- OUTSIDE RECORDS SUMMARY | 2024-10-02 13:18 | XMS_ITS | Encounter Summary ---
Author Organization [facility] Address [address] [place] [address] Phone Care Team Providers Care Recreation Worker Name Role Phone Bucky Hanna MD Unavailable Samuel Montoya MD Unavailable Cristian Santacruz MD Primary Care Provider [phone] Lyle Barreto MD Unavailable Tabby Coelho APRN, DIRECTOR SUPPLIER QUALITY Unavailable Mahi Little MD Primary Care Provider Marguerite vailable Encounter Details Date Type Department Care Team (Late st Contact Info) Description 10/03/2019 [facility] [address] [place] [address] Tabby Coelho APRN, DIRECTOR SUPPLIER QUALITY [address] [place] [address] Social History Tobacco Use Types Packs/Day Years Used Date Smoking Tobacco: Every Day Cigarettes 0.5 18.2 Started: 08/05/2006 Smokeless Tobacco: Never Comments:Hoping to [...] documented as of this encounter Care Teams Recreation Worker Relationship Specialty Start Date End Date Cristian Santacruz MD PCP - General Family Medicine 08/08/18 05/16/23 Mahi Little MD [address] [place] [address] PCP - General Obstetrics & Gynecology 11/11/23 Bucky Hanna MD Consulting Physician Medical Oncology 04/26/18 11/26/19 Samuel Montoya MD Consulting Physician Radiation Oncology 04/26/18 Lyle Barreto MD [address] [place] [address] Consulting Physician Medical Oncology 11/27/19 Tabby Coelho, STEFANY, DIRECTOR SUPPLIER QUALITY [address] [place] [address] Nurse Practitioner Advanced Practice Nurse 11/27/19 documented as of this encounter
== END 2024-10-02 13:22 | disposition home or self-care (01) ==
PROVIDERS: Emergency Provider Nurse Practitioner Family
DX: L25.9 Unspecified contact dermatitis, unspecified cause (principal)
CPT/HCPCS: 99213; G0463

== ENCOUNTER 2024-11-08 15:00 | Emergency (ER) | payer OTHER, SELFPAY ==
--- OUTSIDE RECORDS SUMMARY | 2024-11-08 15:02 | XMS_ITS | Clinical Summary ---
Author Organization [facility] Address [address] [facility] [place] [address] Care Team Providers Care Label Printer Name Role Phone Unavailable Primary Care Provider Unavailabl e Source Comments [facility] [employer],non-owned Affiliates and Associated Physician Practices is amultiple site organization consisting of ambulatory clinics and hospital sitesin [place], [place], [place] and [place]. This disclosure is being madepursuant to the Care Everywhere program and may not contain all information available regarding this patient. 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
--- OUTSIDE RECORDS SUMMARY | 2024-11-08 15:02 | XMS_ITS | Clinical Summary ---
Author Organization [facility] Virtual Care Address [address] [place] [address] Phone Care Team Providers Care Boarder Hand Name Role Phone No, Physician Primary Care Provider [phone] No, Physician Unavailable Mahi Little MD Unavailable [phone] Allergies Active Allergy Reactions Criticality Noted Date [...] Description 08/30/2024 1:00 PM CDT Office Visit [email or web address] [address] [facility] [address] [place] [address] Mahi Little MD Anorgasmia of female (Primary Dx); Menorrhagia with regular cycle; Well woman exam; Stress incontinence of urine; Tobacco use 08/08/2024 Telephone [email or web address] [address] [facility] [address] [place] [address] Mahi Little MD from Last [...] on file 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 Bx [facility] Comment:None given SOURCE: [facility] Comment:Cervix, Endocervix Pap, specimen adequacy [facility] Comment: Satisfactory for evaluation. Endocervical/transformation zone component present. Age and/or menstrual status not provided HPV interp [facility] Comment: Cytology Results: Negative for intraepithelial lesion or malignancy. COMMENTS [facility] Comment: This case could not be evaluated with computer assisted technology. The slide was manually screened according to routine procedures. Principal Investigator [facility] Comment: BES, CT(ASCP) CT screening location: [place] [address] [place] [address] Comment [facility] Comment: EXPLANATORY NOTE: The Pap is a [...] High Risk E6/E7 Not Detected NOT DETECTED [facility] Comment: Not Detected High Risk HPV types (16,18,31,33,35,39,45,51,52, 56,58,59,66,68) were not detected. Other HPV types which cause anogenital lesions may be present. The significance of the other types of HPV in malignant processes has not been established. Methodology: Real Time PCR Thin prep 05/16/2023 1:16 PM CDT 05/17/2023 4:21 AM CDT us Brigida Canales NP LAB CYTOLOGY ORDERABLES Final [facility]ult [facility] [address] [place] [address] [facility] [address] [place] [address] from Last 3 Months or Most Recently Relevant to Health Maintenance Insurance [facility] [address] [address] [facility] Care Teams Boarder Hand Relationship Specialty Start Date End Date No, Physician PCP - General 07/15/22 No, Physician 07/15/22 Mahi Little MD [address] [place] [address] [address] MURILLO [address] [place] [address] Consulting Physician Obstetrics and Gynecology 09/09/22
--- OUTSIDE RECORDS SUMMARY | 2024-11-08 15:03 | XMS_ITS | Clinical Summary ---
Author Organization [facility] Address [address] [place] [address] Phone Care Team Providers Care Discharging Machine Operator Name Role Phone Samuel Montoya MD Unavailable [phone] Lyle Barreto MD Unavailable [phone] Tabby Coelho APRN, FAIRGROUND OPERATOR Unavailable [phone] Mahi Little MD Primary Care Provider Marguerite [...] from 04/26/2018:Stage IIA(cT2, cN0(f), cM0, G2, ER+, NJ-, HER2-) - Signed by Samuel Montoya MD on 11/15/2018 Pathologic stage from 04/26/2018:Stage IIA(pT2, pN0(sn), cM0, G3, ER-, NJ-, HER2-, Oncotype DX score: 58) - Signed [...] 03/22/2015 03/29/19 17 Tobacco use 03/22/2015 11/15/2018 Encounters Date Type Department Care Team Description 10/10/2024 1:21 PM CDT - 10/10/2024 4:08 PM CDT Emergency [facility] [address] [place] [address] Forest Douglas MD Chest pain, unspecified type Discharge Disposition: Discharged to home or Selfcare 10/10/2024 Travel from Last 3 Months Immunizations Immunization Administration Dates Next Due Covid-19, Mrna, Lnp-s, Pf, 3 0 Mcg/0.3 Ml Dose (Stat) 07/29/2020,07/09/2020 DTP Vaccine 12/02/1995 DTP-Hib 06/04/1993, 3,04/25/1992,01/09 [...] Date Smoking Tobacco: Every Day Cigarettes 0.5 18.3 Started: 08/05/2006 Smokeless Tobacco: Never Tobacco Cessation:Ready [...] Sign Reading Time Taken Comments Blood Pressure 113/72 10/10/2024 4:00 PM CDT Pulse 73 10/10/2024 4:00 PM CDT Temperature 36.2 C (97.2 F) 10/10/2024 1:16 PM CDT Respiratory Rate 11 10/10/2024 4:00 PM CDT Oxygen Saturation 99% 10/10/2024 4:00 PM CDT Inhaled Oxygen Concentration - - Weight 108.9 kg (240 lb) 10/10/2024 1:16 PM CDT Height 167.6 cm (5' 6) 10/10/2024 1:16 PM CDT Body Mass Index 38.74 10/10/2024 1:16 PM CDT Plan of Treatment Health Maintenance [...] (CCS) 09/06/2021 HPV/Cotest 09/06/2021 Influenza Immunization (#1) 2024 SARS-COV-2 Immunization ( season) 2024 03/21/2021, 07/29/2020, 07/09/2020 Respiratory Syncytial Virus (RSV) Immunization (Adult) (1 - 1-dose 75+ series) 09/06/2066 Hepatitis B Immunization Completed 997, 12/02/1995, 09/15/1994 Meningococcal Immunization (ACWY) Aged Out No longer eligible based on patient's age to complete this topic Rotavirus Immunization Aged Out No lo nger eligible based on patient's age to complete this topic Medical Devices Explanted Type Area Hoop Puncher Device Identifier Shelf Expiration Date Model / Serial / Lot Port Powerport Clearvue Isp Implantable W/8fr Folyurethane Catheter - [id number] Implanted:Qty: 1 on 05/11/2018 by Lino Wills MD at [facility] Explanted:Qty: 1 on 09/04/2018 by Marek Keith MD at [facility] IMPLANT Right: Chest [email or web address] 07/22/2019 [id number] / [id number] / [id number] Procedures Procedure Name Priority Date/Time Associated Diagnosis Comments XR CHEST SINGLE VIEW PORTABLE STAT 10/10/2024 3:26 PM CDT EKG 12 LEAD STAT 10/10/2024 2:13 PM CDT CBC WITH AUTO DIFFERENTIAL STAT 10/10/2024 2:00 PM CDT D-DIMER STAT 10/10/2024 2:00 PM CDT APTT (PTT) STAT 10/10/2024 2:00 PM CDT PROTIME (PT) (PROTHROMBIN TIME) STAT 10/10/2024 2:00 PM CDT TROPONIN I, HIGH SENSITIVITY (HSTRP) STAT 10/10/2024 2:00 PM CDT CMP (COMPREHENSIVE METABOLIC PANEL) STAT 10/10/2024 2:00 PM CDT COMPLETE BLOOD COUNT (CBC) WITH DIFF STAT 10/10/2024 2:00 PM CDT HUMAN CHORIONIC GONADOTROPIN SCRN SERUM STAT 10/10/2024 2:00 PM CDT RHYTHM STRIP 10/10/2024 12:00 AM CDT EKG SCAN 10/10/2024 12:00 AM CDT from Last 3 Months Results * XR CHEST SINGLE VIEW PORTABLE (10/10/2024 3:26 PM CDT) Anatomical Region Laterality Modality Chest N/A Digital Radiogra phy 10/10/2024 3:53 PM CDT Impressions 10/10/2024 3:55 PM CDT IMPRESSION: No acute cardiopulmonary abnormality. Narrative 10/10/2024 3:55 PM CDT EXAM DESCRIPTION: XR CHEST SINGLE VIEW PORTABLE REASON FOR STUDY: c/o chest pain that has been ongoing intermittently for the past couple of weeks. H/o Current smoker, left breast cancer, bronchitis TECHNIQUE: 1 radiographic view(s) of the chest. COMPARISON: 11/07/2021 FINDINGS: LUNGS: No focal opacity, pleural effusion, or pneumothorax. HEART/MEDIASTINUM: Cardiac silhouette normal in size. Mediastinal and hilar contours appear normal. LINES/TUBES: None. BONES: No acute osseous abnormality. THIS IS AN ELECTRONICALLY VERIFIED FINAL REPORT 10/10/2024 3:53 PM - Electronically signed by Payam Perez M.D. KT: ELIANA Report ID: [id number] Reading Location: [id number] Procedure Note Payam Perez MD - 10/10/2024 EXAM DESCRIPTION: XR CHEST SINGLE VIEW PORTABLE REASON FOR STUDY: c/o chest pain that has been ongoing intermittently for the past couple of weeks. H/o Current smoker, left breast cancer, bronchitis TECHNIQUE: 1 radiographic view(s) of the chest. COMPARISON: 11/07/2021 FINDINGS: LUNGS: No focal opacity, pleural effusion, or pneumothorax. HEART/MEDIASTINUM: Cardiac silhouette normal in size. Mediastinal and hilar contours appear normal. LINES/TUBES: None. BONES: No acute osseous abnormality. THIS IS AN ELECTRONICALLY VERIFIED FINAL REPORT 10/10/2024 3:53 PM - Electronically signed by Payam Perez M.D. KT: ELIANA Report ID: [id number] Reading Location: [place] [address] IMPRESSION: No acute cardiopulmonary abnormality. us Forest Douglas MD IMG DIAGNOSTIC ORDERABLES Final Result * EKG 12 LEAD (10/10/2024 2:13 PM CDT) Ventricular Rate 79 BPM EXTERNAL EKG Atrial Rate 79 BPM EXTERNAL EKG P-R Interval 188 ms EXTERNAL EKG QRS Duration 84 ms EXTERNAL EKG Q-T Duration 382 ms EXTERNAL EKG QTC CALCULATION 438 ms EXTERNAL EKG P [place] 33 degrees EXTERNAL EKG R [place] -5 degrees EXTERNAL EKG T [place] 47 degrees EXTERNAL EKG 10/10/2024 2:13 PM CDT Impressions EXTERNAL EKG - 10/11/2024 5:16 PM CDT Normal sinus rhythm Inferior infarct , age undetermined Cannot rule out Anterior infarct , age undetermined Abnormal ECG When compared with ECG of 11-NOV-2023 15:05, Inferior infarct is now present Confirmed by MAGDIEL CORREA ([id number]) on 10/11/2024 5:16:14 PM Narrative Procedure Note Magdiel Correa MD - 10/11/2024 IMPRESSION: Normal sinus rhythm Inferior infarct , age undetermined Cannot rule out Anterior infarct , age undetermined Abnormal ECG When compared with ECG of 11-NOV-2023 15:05, Inferior infarct is now present Confirmed by MAGDIEL CORREA ([id number]) on 10/11/2024 5:16:14 PM us Forest Douglas MD IMG ECG ORDERABLES Final Result Performing Organization Address City/[facility]/ZIP Co de Phone Number EXTERNAL EKG * TROPONIN I, HIGH SENSITIVITY (HSTRP) (10/10/2024 2:00 PM CDT) Pathologist [facility] TROPONIN I, HIGH SENSITIVITY- ALEX <2.7 <=14.0 ng/L 10/10/2024 3:02 PM CDT [facility] Comment: High-sensitivity troponin I results are reported in ng/L making the result appear to be 1,000 times higher than the contemporary troponin I value which is reported in ng/ml. Results from Alex. Blood Venipuncture / Unknown 10/10/2024 2:00 PM CDT 10/10/2024 2:30 PM CDT us Forest Douglas MD CHEMISTRY ORDERABLES Giana l Result Performing Organization Address City/[facility]/ZIP Co de Phone Number [facility] [address] [place] [address] * (ABNORMAL) CBC with Auto Differential (10/10/2024 2:00 PM CDT) [facility] WBC 11.05 4.00 - 12.00 10(3)/mcL 10/10/2024 2:34 PM CDT [facility] RBC 4.32 3.80 - 5.30 10(6)/mcL 10/10/2024 2:34 PM CDT [facility] HEMOGLOBIN (HGB) 13.8 12.0 - 15.8 g/dL 10/10/2024 2:34 PM CDT [facility] HEMATOCRIT (HCT) 38.8 36.0 - 47.0 % 10/10/2024 2:34 PM CDT [facility] MCV 89.8 82.0 - 96.0 fL 10/10/2024 2:34 PM CDT [facility] MCH 31.9 26.0 - 34.0 pg 10/10/2024 2:34 PM CDT [facility] MCHC 35.6 31.0 - 36.0 g/dL 10/10/2024 2:34 PM CDT [facility] PLATELET COUNT 302 140 - 440 10(3)/mcL 10/10/2024 2:34 PM CDT [facility] RDW 11.8 11.8 - 15.5 % 10/10/2024 2:34 PM CDT [facility] MPV 8.8(L) 9.7 - 12.4 fL 10/10/2024 2:34 PM CDT [facility] NEUTROPHILS 56.6 47.0 - 73.0 % 10/10/2024 2:34 PM CDT [facility] LYMPHOCYTES 34.8 18.0 - 42.0 % 10/10/2024 2:34 PM CDT [facility] MONOCYTES 4.7 4.0 - 12.0 % 10/10/2024 2:34 PM CDT [facility] EOSINOPHILS 3.0 0.0 - 5.0 % 10/10/2024 2:34 PM CDT [facility] BASOPHILS 0.5 0.0 - 1.0 % 10/10/2024 2:34 PM CDT [facility] IMMATURE GRANULOCYTE 0.4 0.0 - 0.4 % 10/10/2024 2:34 PM CDT [facility] ABSOLUTE NEUTROPHILS 6.26 1.60 - 7.70 10(3)/mcL 10/10/2024 2:34 PM CDT [facility] ABSOLUTE LYMPHOCYTES 3.85(H) 1.30 - 3.20 10(3)/mcL 10/10/2024 2:34 PM CDT [facility] ABSOLUTE MONOCYTES 0.52 0.20 - 1.00 10(3)/mcL 10/10/2024 2:34 PM CDT [facility] ABSOLUTE EOSINOPHIL 0.33 0.00 - 0.40 10(3)/mcL 10/10/2024 2:34 PM CDT [facility] ABSOLUTE BASOPHILS 0.05 0.00 - 0.10 10(3)/mcL 10/10/2024 2:34 PM CDT [facility] ABSOLUTE IMMATURE GRANULOCYTE 0.04(H) 0.00 - 0.03 10 (3) mcL. 10/10/2024 2:34 PM CDT [facility] NRBC PER 100 WBC 0 10/11/19 2:34 PM CDT [facility] Blood Venipuncture / Unknown 10/10/2024 2:00 PM CDT 10/10/2024 2:30 PM CDT us Forest Douglas MD HEMATOLOGY ORDERABLES Fin al Result Performing Organization Address [facility] Co de Phone Number [facility] [address] [place] [address] * APTT (PTT) (10/10/2024 2:00 PM CDT) [facility] PTT 26 24 - 36 sec 10/10/2024 2:49 PM CDT [facility] Blood Venipuncture / Unknown 10/10/2024 2:00 PM CDT 10/10/2024 2:30 PM CDT Narrative [facility] - 10/10/2024 2:49 PM CDT Therapeutic range for unfractionated heparin at 0.3-0.7 U/mL is an aPTT value in the range of 71-100 seconds. Critical value for the PTT test is >= 122 seconds. us Forest Douglas MD HEMATOLOGY ORDERABLES Fin al Result Performing Organization Address [facility] Co de Phone Number [facility] [address] [place] [address] * PT / INR (10/10/2024 2:00 PM CDT) Pathologist [facility] PROTIME-PATIENT 13.2 11.6 - 14.8 sec 10/10/2024 2:49 PM CDT [facility] INR 1.0 0.9 - 1.2 10/10/2024 2:49 PM CDT [facility] Comment: Therapeutic Ranges INR = 2.0-3.0: Venous thromb, atrial fib, pul embolism, tissue heart valve, ami. INR = 2.5-3.5: Mechanical heart valve Critical value for INR is >/= 4.5 Blood Venipuncture / Unknown 10/10/2024 2:00 PM CDT 10/10/2024 2:30 PM CDT Forest Douglas MD HEMATOLOGY ORDERABLES Fin al Result Performing Organization Address City/[facility]/ZIP Co de Phone Number [facility] [address] [place] [address] * Human Chorionic Gonadotropin Scrn Serum [id number] (10/10/2024 2:00 PM CDT) [facility] PREG-HCG Negative Negative 10/10/2024 3:09 PM CDT [facility] Blood Venipuncture / Unknown 10/10/2024 2:00 PM CDT 10/10/2024 2:30 PM CDT Forest Douglas MD CHEMISTRY ORDERABLES Giana l Result [facility] [address] [place] [address] * D-Dimer (10/10/2024 2:00 PM CDT) [facility] D DIMER <=0.27 <0.50 mcg/mL FEU 10/10/2024 2:49 PM CDT [facility] Blood Venipuncture / Unknown 10/10/2024 2:00 PM CDT 10/10/2024 2:30 PM CDT Narrative [facility] - 10/10/2024 2:49 PM CDT The FDA has approved this method to exclude the diagnosis of DVT and/or PE at the cutoff value of <0.50 mcg/mL FEU. us Forest Douglas MD HEMATOLOGY ORDERABLES Fin al Result [facility] [address] [place] [address] * (ABNORMAL) CMP (Comprehensive Metabolic Panel) (10/10/2024 2:00 PM CDT) SODIUM 139 136 - 145 mmol/L 10/10/2024 3:00 PM CDT [facility] POTASSIUM 3.4(L) 3.5 - 5.1 mmol/L 10/10/2024 3:00 PM CDT [facility] CHLORIDE 104 98 - 107 mmol/L 10/10/2024 3:00 PM CDT [facility] CO2, VENOUS 25 22 - 30 mmol/L 10/10/2024 3:00 PM CDT [facility] ANION GAP 13.4 <18.0 mmol/L 10/10/2024 3:00 PM CDT [facility] GLUCOSE 114(H) 70 - 99 mg/dL 10/10/2024 3:00 PM CDT [facility] BUN 10 5 - 18 mg/dL 10/10/2024 3:00 PM CDT [facility] CREATININE, BLOOD 0.91 0.60 - 1.00 mg/dL 10/10/2024 3:00 PM CDT [facility] BUN/CREATININE RATIO 11(L) 12 - 20 ratio 10/10/2024 3:00 PM CDT [facility] TOTAL PROTEIN 7.0 6.0 - 8.0 g/dL 10/10/2024 3:00 PM CDT [facility] ALBUMIN 4.1 3.5 - 5.0 g/dL 10/10/2024 3:00 PM CDT [facility] A/G RATIO 1.4 1.0 - 2.2 10/10/2024 3:00 PM CDT [facility] CALCIUM 9.2 8.7 - 10.5 mg/dL 10/10/2024 3:00 PM T [facility] T BILI 0.3 0.2 - 1.2 mg/dL 10/10/2024 3:00 PM T [facility] SGOT (AST) 27 <43 U/L 10/10/2024 3:00 PM T [facility] SGPT (ALT) 23 <56 U/L 10/10/2024 3:00 PM [facility] ALKALINE PHOSPHATASE 64 40 - 150 U/L 10/10/2024 3:00 PM T [facility] GFR, ESTIMATED >60 >=60 10/10/2024 3:00 PM [facility] Comment: Creatinine Clearance is the preferred criteria for selecting drug dose adjustments in renally impaired patients. The GFR is provided as additional pertinent clinical information. GFR is reported in mL/min/1.73 sq m. Calculation based on the 2020 Chronic Kidney Disease Epidemiology Collaboration (CKD-EPI) equation refit without adjustment for race. GFR, EST. >60 >=60 025 3:00 PM [facility] Comment: Creatinine Clearance is the preferred criteria for selecting drug dose adjustments in renally impaired patients. The GFR is provided as additional pertinent clinical information. GFR is reported in mL/min/1.73 sq m. Calculation based on the 2009 Chronic Kidney Disease Epidemiology Collaboration (CKD-EPI). GFR, EST. NONAFRICAN >60 >=60 10/10/2024 3:00 PM [facility] Comment: Creatinine Clearance is the preferred criteria for selecting drug dose adjustments in renally impaired patients. The GFR is provided as additional pertinent clinical information. GFR is reported in mL/min/1.73 sq m. Calculation based on the 2009 Chronic Kidney Disease Epidemiology Collaboration (CKD-EPI). Blood Venipuncture / Unknown 10/10/2024 2:00 PM CDT 10/10/2024 2:30 PM CDT us Forest Douglas MD CHEMISTRY ORDERABLES Giana l Result [facility] [address] [place] [address] * RHYTHM STRIP (10/10/2024 12:00 AM CDT) 10/10/2024 us Provider Scan IMG ECG ORDERABLES Final Result RESULTING AGENCY * EKG SCAN (10/10/2024 12:00 AM CDT) 10/10/2024 us Provider Scan IMG ECG ORDERABLES Final Result Performing Organization Address City/[facility] Co de Phone Number RESULTING AGENCY from Last 3 Months Insurance MEDICAID ALPHA Advance Directives * Full Code (Latest Code Status on File) Date Activated Date Inactivated Comments 03/21/2015 11:47 PM 03/23/2015 12:50 PM Full Code: FULL ARREST: Attempt Resuscitation/CPR and use intubation and mechanical ventilation as indicated. PRE-ARREST: Use all measures to stabilize patient. Care Teams Discharging Machine Operator Relationship Specialty Start Date End Date Mahi Little MD [address] [place] [address] PCP - General Obstetrics & Gynecology 11/11/23 Samuel Montoya MD Consulting Physician Radiation Oncology 04/26/18 Lyle Barreto MD [address] [place] [address] Consulting Physician Medical Oncology 11/27/19 Tabby Coelho APRN, FAIRGROUND OPERATOR [address] [place] [address] Nurse Practitioner Advanced Practice Nurse 11/27/19
[2024-11-08 15:12] VITALS: BP 131/62; PULSE 100; RESP 18; TEMP 36.6; O2SAT 98
--- NOTE | 2024-11-08 15:33 | ED.SKABFB ---
HPI - Skin/Abscess/Foreign Bdy General Chief complaint: Skin/Abscess/Foreign Body Stated complaint: poison deanna Time Seen by Provider: 11/08/24 15:20 Source: patient Mode of arrival: ambulatory Limitations: no limitations History of Present Illness HPI narrative: Елена is a 34-year-old female patient seen to the clinic today with complaints of possible poison deanna all over body x2 days. She reports she has it on her face, arms, legs, thighs, and abdomen. States that she has a poison deanna find is going right outside her front door and she did not realize it. States the rash is itchy. She denies any difficulty swallowing or breathing. Related Data Allergies Allergy/AdvReac Type Severity Reaction Status Date / Time No Known Allergies Allergy Verified 11/08/24 15:11 Review of Systems Review of Systems: Pertinent positives per HPI. Patient denies any fever, chills, headache, visual changes, dizziness, cough, runny nose, sore throat, shortness of breath, chest pain, palpitations, nausea, vomiting, diarrhea, constipation, abdominal pain, or any urinary issues. PMFSH Comments At the time of my signature, I reviewed and agree with the nursing past medical, surgical, social, and family history. There is no relevant family history pertinent to the patient complaint. Exam Narrative: General: Well-developed, well nourished, in no apparent distress Head: Normocephalic, atraumatic. Cardio: Regular rate and rhythm, s1 and s2 normal, no murmur appreciated. Resp: Clear to auscultation bilaterally, no rhonchi, rales, wheezing or rubs. Integumentary: Tula, warm, and dry, intact without lesion, red, raised, itchy, blistery rash on face, abdomen, arms, thighs and lower legs. Course Course Emergency Course: Portions of this record may have been created with voice recognition software. Level of Care: Express Care Visit Vital Signs Vital signs: Vital Signs Temperature 36.6 C 11/08/24 15:12 Pulse Rate 100 11/08/24 15:12 Respiratory Rate 18 11/08/24 15:12 Blood Pressure 131/62 11/08/24 15:12 Pulse Oximetry 98 11/08/24 15:12 Oxygen Delivery Room Air 11/08/24 15:12 Temperature 36.6 C 11/08/24 15:12 Pulse Rate 100 11/08/24 15:12 Respiratory Rate 18 11/08/24 15:12 Blood Pressure 131/62 11/08/24 15:12 Pulse Oximetry 98 11/08/24 15:12 Oxygen Delivery Room Air 11/08/24 15:12 Vital signs reviewed MDM - Skin/Abscess/Foreign Bdy MDM Narrative Medical decision making narrative: At the time of visit patient is resting comfortably on the exam table. Patient appears to be nontoxic. Complaints of possible poison deanna all over body x2 days. She reports she has it on her face, arms, legs, thighs, and abdomen. States that she has a poison deanna find is going right outside her front door and she did not realize it. States the rash is itchy. She denies any difficulty swallowing or breathing. Dexamethasone 10 mg IM ordered in the clinic today. On exam patient has red, raised, itchy, blistery rash on face, abdomen, arms, thighs and lower legs. Medications: Dexamethasone 10 mg IM in the clinic today Plan: I suspect patient has poison deanna dermatitis. Prescription for prednisone 10 day taper dose and triamcinolone cream was sent to the pharmacy. Dexamethasone 10 mg were given in the clinic today IM. Supportive measures were discussed with the patient and they voiced understanding discharge instructions and agrees to treatment plan. Return precautions reviewed Differential Diagnosis Differential diagnosis: Likely abscess of skin or subcutaneous tissue, viral exanthem, dermatophytosis, urticaria, herpes zoster, allergic reaction to drug, cellulitis, eczema, insect bites, impetigo and contact dermatitis Discharge Plan Discharge Clinical Impression: Allergic contact dermatitis due to plant Patient Disposition: Home Condition: Stable Instructions: Antibiotic Form, Poison Deanna (ED) Additional Instructions: Apply triamcinolone cream as directed Take prednisone as directed-start taking 11/09/2024 Avoid hot showers May apply calamine lotion to rash Avoid scratching as this can cause a secondary infection May take benadryl 25-50mg every 6 hours as needed for itching. Follow up with your PCP in 3-5 days if symptoms persist or sooner if they worsen Go to the Emergency Room if symptoms worsen- fever, rash spreading with treatment, shortness of breath, tongue swelling, drooling, or chest pain Patient Language: Faroese Prescriptions: New triamcinolone acetonide 0.1 % cream 1 applic topical BID 7 Days Qty: 30 0RF prednisone 10 mg tablet 10 mg PO DAILY Qty: 30 0RF Rx Instructions: 60mg po daily on day 1, 40mg po daily on days 2-4, 30mg po daily on days 5-6, 20mg po daily on days 7-8, 10mg po daily on days 9-10 No Action famotidine [Pepcid] 40 mg tablet 40 mg PO DAILY Qty: 10 0RF Follow-up/Referrals: Neeta,Cristian Kim MD [Primary Care Provider, [facility]] Time of Disposition: 15:38 Quality NIHSS Nursing Documentation ED NIHSS nursing documentation: reviewed/agree
[2024-11-08] MEDS: dexAMETHasone SOD PHOS INJ 10 MG/ML 1 ML VIAL IM (15:38)
== END 2024-11-08 16:04 | disposition home or self-care (01) ==
PROVIDERS: Emergency Provider Nurse Practitioner Family; PCP Family Medicine
DX: L23.7 Allergic contact dermatitis due to plants, except food (principal); Z86.711 Personal history of pulmonary embolism; Z85.3 Personal history of malignant neoplasm of breast
CPT/HCPCS: 96372; 99213; G0463; J1100

== ENCOUNTER 2025-01-28 14:34 | Emergency (ER) | payer OTHER, SELFPAY ==
[2025-01-28 14:40] VITALS: BP 144/86; PULSE 88; RESP 20; TEMP 36.3; O2SAT 99
--- NOTE | 2025-01-28 15:29 | ED.URI ---
HPI - URI/Sore Throat General Chief Complaint: Upper Respiratory Infection Stated Complaint: Nasal Congestion/Cough/Chest Congestion Time Seen by Provider: 01/28/25 15:00 Source: patient and RN notes reviewed Mode of arrival: ambulatory Limitations: no limitations History of Present Illness HPI Narrative: 34-year-old female presents to the [facility] complaining of upper respiratory symptoms for 3 days. Patient reports cough, congestion, runny nose, body aches. Patient denies any other upper respiratory symptoms, chest pain, difficulty breathing, wheezing, nausea vomiting, diarrhea, abdominal pain, any other symptoms. Patient does not smoke cigarettes but does report she vapes. Patient denies any significant past medical history. Related Data Allergies Allergy/AdvReac Type Severity Reaction Status Date / Time No Known Allergies Allergy Verified 01/28/25 14:39 Review of Systems Review of Systems: CONSTITUTIONAL: Denies fever, chills, or sweats. Positive body aches EYES: Denies visual changes, redness, or discharge. ENT: Positive for rhinorrhea, congestion. Negative for sore throat, or otalgia. CARDIOVASCULAR: Denies chest pain, palpitations, or edema. RESPIRATORY: Positive for cough. Negative for wheezing or dyspnea. GASTROINTESTINAL: Denies abdominal pain, nausea, vomiting, or diarrhea. GENITOURINARY: Denies dysuria or hematuria. SKIN: Denies rash or itching. MUSCULOSKELETAL: Denies back pain, joint pain, or myalgia. NEUROLOGIC: Denies headache, numbness, or weakness. PSYCHIATRIC: Denies anxiety or depression. All other systems reviewed are negative, except as documented in HPI. PMFSH Comments At the time of my signature, I reviewed and agree with the nursing past medical, surgical, social, and family history. There is no relevant family history pertinent to the patient complaint. Exam Narrative: GENERAL: This is a well-nourished, well-developed adult, in no apparent distress. They are non ill-appearing, nontoxic appearing. HEAD: normocephalic, atraumatic. EYES: Sclera clear/white. Conjunctiva normal. Vision is grossly intact. Extraocular movements intact EARS: External ears normal, auditory canals clear and without drainage, TMs normal without perforation. Hearing grossly intact. NOSE: External nose normal with no obvious nasal discharge, nasal turbinates erythematous with rhinorrhea. THROAT: Mucous membranes moist, posterior pharynx erythematous. Uvula midline. Postnasal drip present NECK: Neck supple, non-tender without lymphadenopathy, masses or thyromegaly. CARDIOVASCULAR: Regular rate and rhythm without murmurs, gallops, or rubs. RESPIRATORY: Clear to auscultation. Breath sounds equal bilaterally. No wheezes, rales, or rhonchi. SKIN: warm, Dry, intact with no suspicious lesions or rash, good texture and turgor. NEURO: awake, alert, and oriented to person, place and time. There were no obvious focal neurologic abnormalities. EXTREMITIES: No joint tenderness, effusion, or edema noted. BACK: Nontender without deformity. No CVA tenderness. Course Course Level of Care: Express Care Visit Vital Signs Vital signs: Vital Signs Temperature 97.4 F L 01/28/25 14:40 Pulse Rate 88 01/28/25 14:40 Respiratory Rate 20 01/28/25 14:40 Blood Pressure 144/86 H 01/28/25 14:40 Pulse Oximetry 99 01/28/25 14:40 Oxygen Delivery Room Air 01/28/25 14:40 Temperature 97.4 F L 01/28/25 14:40 Pulse Rate 88 01/28/25 14:40 Respiratory Rate 20 01/28/25 14:40 Blood Pressure 144/86 H 01/28/25 14:40 Pulse Oximetry 99 01/28/25 14:40 Oxygen Delivery Room Air 01/28/25 14:40 MDM MDM Narrative Medical decision making narrative: Symptoms likely viral etiology. Offered viral testing patient declined. Given patient's tobacco use history will go ahead and give her Medrol Dosepak. Will prescribe benzonatate tablets for cough. Discussed supportive care. Discussed physical exam findings. Advised supportive measures and signs/symptoms to go to the ER. Pt is appropriate for outpt treatment and f/u. Differential Diagnosis Differential Diagnosis: Differential diagnostic considerations for upper respiratory infection include upper respiratory infection, croup, otitis media, sinusitis, viral infection, bronchitis, influenza, pharyngitis, strep, uvulitis. Critical Care Time Critical Care Time Critical Care Time: No Discharge Plan Discharge Clinical Impression: Upper respiratory infection Qualifiers: URI type: unspecified viral URI Qualified Code(s): J06.9 - Acute upper respiratory infection, unspecified Patient Disposition: Home Condition: Stable Instructions: Upper Respiratory Infection (ED) Additional Instructions: Viral illness may last between 7-10 days; antibiotics do not cure viral illness and are NOT recommended at this time. Recommend antihistamine Zyrtec or Claritin for congestion. You may alternate with DayQuil and NyQuil to help with upper respiratory symptoms. Do not take any additional Tylenol as it already contains Tylenol in it. Follow instructions on the bottle. Take the Medrol Dosepak as directed. Take benzonatate tablets as needed for cough. Also, recommend symptomatic treatment includes: rest, fluids, and increase humidity of the air at home. Alternate with Motrin for pain or fevers. Follow instructions on the bottle. Please schedule a follow-up visit with your personal physician for further evaluation and treatment within 3-5days. She developed difficulty breathing, chest pain, vomiting, worsening fevers, worsening symptoms, or any serious concerns please go to the ER immediately. Patient Language: Azerbaijani Prescriptions: New benzonatate 200 mg capsule 200 mg PO TID PRN (Reason: cough) Qty: 20 0RF methylprednisolone 4 mg tablets,dose pack See Rx Instructions .ROUTE .COMPLEX Qty: 21 0RF Rx Instructions: for 6 days Follow-up/Referrals: Anabel,Mahi Hartman MD [Primary Care Provider, [employer]] Stand Alone Forms: Work/School Release IP Time of Disposition: 15:11
== END 2025-01-28 15:15 | disposition home or self-care (01) ==
PROVIDERS: PCP Obstetrics & Gynecology
DX: J06.9 Acute upper respiratory infection, unspecified (principal); Z86.718 Personal history of other venous thrombosis and embolism; Z85.3 Personal history of malignant neoplasm of breast; Z90.12 Acquired absence of left breast and nipple; Z92.21 Personal history of antineoplastic chemotherapy; Z92.3 Personal history of irradiation
CPT/HCPCS: 99213; G0463